=== PATIENT | male | born 1970 | race Caucasian/White ===

== ENCOUNTER 2024-05-26 04:00 | Day surgery (SDC) | payer BC ==
[2024-05-22 10:03] VITALS: BMI 31.8
[2024-05-26] MEDS ORDERED: MIDAZOLAM HCL 2 MG/2 ML SINGLE DOSE VIAL ONE (12:21)
[2024-05-26] MEDS: ceFAZolin SODIUM 1 GM VIAL IVPB ONE (12:23)
[2024-05-26] MEDS ORDERED: ceFAZolin SODIUM 1 GM VIAL ONE (12:23)
[2024-05-26] MEDS: IOHEXOL 300 MG/ML INFUS..BTL IV ONE (12:30)
[2024-05-26 13:41] VITALS: BP 111/63; PULSE 64; RESP 20; TEMP 97.7
== END 2024-05-26 13:00 | disposition home or self-care (01) ==
LOC: JASU-SURG 04:00
PROVIDERS: ATTEND Urology
DX: Z53.9 Procedure and treatment not carried out, unspecified reason (principal)
CPT/HCPCS: 82962